=== PATIENT | female | born 1965 | race Caucasian/White ===

== ENCOUNTER 2023-12-13 17:17 | Inpatient (IN) | payer OTHER ==
[~2023-12-13] VITALS: Ht 162.6 cm; Wt 145.9 kg
[~2023-12-13 17:17] MED LIST: ELIQUIS5 M2 PO; Prinivil5 MG PO
[2023-12-13 18:28] LABS: BASOPHILS ABSOLUTE AUTO 0.05 K/mm3 (0.00-0.23); BASOPHILS PERCENT AUTO 1 % (0-2); EOSINOPHILS ABSOLUTE AUTO 0.35 K/mm3 (0.00-0.68); EOSINOPHILS PERCENT AUTO 4 % (0-6); Hematocrit 39.2 % (33.0-51.0); Hemoglobin 12.3 g/dL (11.5-16.0); IMMATURE GRAN ABSOLUTE AUTO 0.03 K/mm3 (0.00-0.10); IMMATURE GRAN PERCENT AUTO 0 % (0-1); LYMPHOCYTES ABSOLUTE AUTO 2.82 K/mm3 (0.84-5.20); LYMPHOCYTES PERCENT AUTO 30 % (21-46); MONOCYTES ABSOLUTE AUTO 0.88 K/mm3 (0.16-1.47); MONOCYTES PERCENT AUTO 9 % (4-13); Mean Corpuscular HGB 27.3 pg (26.0-34.0); Mean Corpuscular HGB Conc 31.4 g/dL (31.5-36.5); Mean Corpuscular Volume 87 fL (80-100); Mean Platelet Volume 9.3 fL (9.1-12.4); NEUTROPHILS PERCENT AUTO 56 % (41-73); Platelet Count 277 K/mm3 (150-400); RDW Coefficient Variation 14.6 % (11.7-14.2); RDW Standard Deviation 46.6 fL (35.1-46.3); White Blood Cell Count 9.43 K/mm3 (4.00-11.30)
[2023-12-13 18:57] LABS: Albumin, Blood 2.9 g/dL (3.4-5.0); Albumin/Globulin Ratio 0.8 (0.8-1.8); Bilirubin, Total 0.5 mg/dL (0.1-1.0); Bun/Creatinine Ratio 16.1 (12.0-20.0); Calcium, Blood 9.3 mg/dL (8.5-10.1); Creatinine, Blood 0.75 mg/dL (0.40-1.00); Globulin, Blood 3.8 g/dL (2.2-4.0); Potassium, Blood 3.8 mmol/L (3.5-5.5); Total Protein, Blood 6.7 g/dL (6.4-8.2)
[2023-12-13] MEDS ORDERED: Acetaminophen 325 MG TABLET PO PRN (20:35)
[2023-12-13] MEDS ORDERED: Albuterol 2.5 MG/3 ML VIAL INH PRN (20:35)
[2023-12-13 20:54] LABS: International Normalized Ratio 1.07; Prothrombin Time Results 11.4 Sec (9.7-11.5)
[2023-12-13] MEDS ORDERED: Dose Adjust by Pharmacy XX STA (20:55)
[2023-12-13 20:58] LABS: Magnesium, Blood 1.8 mg/dL (1.6-2.4); Thyroid Stimulating Hormone 2.5 uIU/mL (0.360-4.800)
[2023-12-13] MEDS ORDERED: Heparin Sodium 5000 Units/ML 1ML MDV IV ONE (21:00)
[2023-12-13] MEDS ORDERED: Heparin Sodium,Porcine/0.5 NS 500 ML IV SCH (21:00)
[2023-12-13] MEDS ORDERED: Metoprolol Tartrate 25 MG Tab PO SCH (21:00)
[2023-12-13] MEDS ORDERED: TOPROL XL25 MG PO (21:51)
[2023-12-13] MEDS ORDERED: HYDCHL25 PO (21:52)
[2023-12-13] MEDS ORDERED: POTCHL20ER PO (21:52)
[2023-12-13] MEDS ORDERED: Vitamin D1000 UNI1 PO (21:53)
[2023-12-13] MEDS ORDERED: MULTIPLE VITAM1 EACH PO (21:53)
--- NOTE | 2023-12-13 22:27 | NUR ---
PT ARRIVED ON UNIT AT ABOUT ~2140. AOX4, PLEASANT, ABLE TO MAKE NEEDS KNOWN. ADMITTED FOR AFIB W/RVR. PER PT, SCHEDULED FOR CARDIOVERSION TOMORROW AND WAS TOLD TO COME IN BY HER DOCTOR. TELE IN PLACE, PT RUNNING AFIB WITH RATE VARIABLE BETWEEN 100s-130s PRIMARILY. DENIES FEELING SYPMTOMATIC IN ANY CAPACITY. PT IS VERY PLEASANT BUT SOMEWHAT TEPID ON ADMISSION PROCESS. MOSTLY COOPERATIVE BUT REFUSES IN DEPTH SKIN ASSESSMENT. REPORTS NO WOUNDS/ABRASIONS/SKIN ABNORMALITIES. REPORTS BROADLY BEING PRETTY HEALTHY AT BASELINE. INFORMED PT THAT INSULIN IS SCHEDULED Q6 DUE TO HX OF DIABETES. PT REPORTS THAT SHE WAS JUST INFORMED THAT SHE IS DIABETIC TODAY AND REFUSES CBG CHECKS AND INSULIN ADMINISTRATION UNTIL SHE HAS A CHANCE TO SPEAK WITH DOCTOR. PT EDUCATED TIE CARRIER LIGHT USE. BED LOCKED IN LOWEST POSITION. CALL LIGHT LEFT WITHIN REACH. CONTINUING TO MONITOR.
[2023-12-13 22:36] VITALS: BP 139/97
[2023-12-14] VITALS (7 sets, daily range): BP systolic 111–151; BP diastolic 81–108
[2023-12-14] MEDS ORDERED: Insulin Human Lispro 100 Units/ML 3ML Syringe SC SCH
--- NOTE | 2023-12-14 02:26 | NUR ---
UPDATE PT REFUSED MDN CBG CHECK FOR Q6HR ORDERS. PT EDUCATED ON NEED TO CHECK BLOOD GLUCOSE.
[2023-12-14 04:13] LABS: Hematocrit 38.9 % (33.0-51.0); Hemoglobin 12.4 g/dL (11.5-16.0); Mean Corpuscular HGB 27.7 pg (26.0-34.0); Mean Corpuscular HGB Conc 31.9 g/dL (31.5-36.5); Mean Corpuscular Volume 87 fL (80-100); Mean Platelet Volume 9.1 fL (9.1-12.4); Platelet Count 252 K/mm3 (150-400); RDW Coefficient Variation 14.7 % (11.7-14.2); RDW Standard Deviation 46.7 fL (35.1-46.3); Red Blood Cell Count 4.48 M/mm3 (3.80-5.20); White Blood Cell Count 10.76 K/mm3 (4.00-11.30)
[2023-12-14 04:35] LABS: Calcium, Blood 8.8 mg/dL (8.5-10.1); Creatinine, Blood 0.65 mg/dL (0.40-1.00); Magnesium, Blood 1.9 mg/dL (1.6-2.4); Potassium, Blood 3.8 mmol/L (3.5-5.5)
[2023-12-14] MEDS ORDERED: Dose Adjust by Pharmacy XX STA ×2 (04:55→11:27)
--- NOTE | 2023-12-14 05:02 | NUR ---
SHIFT SUMMARY. SHIFT HAS BEEN UNREMARKABLE. PT HAS BEEN AOX4, PLEASANT, ABLE TO MAKE NEEDS KNOWN. PT HAS BEEN RESTING COMFORTABLY SINCE ARRIVAL. CONTINUES TO DENY PAIN. AT ONE POINT EARLY THIS MORNING, PT REPORTED FEELING SOMEWHAT SHORT OF BREATH. WAS SATURATING >95% ON ROOM AIR, LUNG SOUNDS REMAINED CLEAR. OFFERED TO LAY PT ON BACK AND SIT UP IN BED, PT REFUSED. OFFERED TO HAVE CONTINUOUS PULSE OX IN PLACE TO MONITOR OXYGENATION, PT REFUSED. AT THAT POINT SHE WAS REPORTING FEELING BETTER AND WOULD LET ME KNOW IF IT HAPPENED AGAIN. PT HAS CONTINUED TO REFUSE INSULIN ADMINISTRATION. PT HAS NOT VOIDED THUS FAR TONIGHT, SUGGESTED BLADDER SCAN TO ENSURE NO RETENTION. PT REPORTED NO HX OF RETENTION AND WAS NOT WORRIED ABOUT IT AND THUS REFUSED BLADDER SCAN. HAS CONTINUED TO RUN AFIB, RATE NOW IN 80s-100s RANGE. NPO SINCE MIDNIGHT. VITALS HAVE REMAINED STABLE. HEPARIN RUNNING THROUGHOUT SHIFT. BED LOCKED IN LOWEST POSITION. CALL LIGHT LEFT WITHIN REACH. CONTINUING TO MONITOR.
[2023-12-14] MEDS ORDERED: Warfarin Sodium 4 MG Tab PO ONE (07:55)
[2023-12-14] MEDS ORDERED: NS 1,000 ML IV ONE (13:46)
--- NOTE | 2023-12-14 14:00 | NUR ---
PT DOWN TO [facility] AND CARDIOVERSION WITH ANESTHESIA. SEE ANESTHESIA NOTES.
--- NOTE | 2023-12-14 14:31 | NUR ---
PT ALERT AND ORIENTED X4. PT UPDATED ON PROCEDURE.
--- NOTE | 2023-12-14 14:53 | NUR ---
PT WHEELED BACK TO [facility]. REPORT TO NENA MAYER TO ASSUME CARE.
--- NOTE | 2023-12-14 18:27 | NUR ---
Summary. Pt rested throughout shift. Alert and oriented, VS stable. Taken to incinerator plant laborer at approximately 1340 for cardioversion, see incinerator plant laborer report. Pt returned at 1450, Heparin gtt continued, Amiodarone GTT started, see emar. 2nd PIV placed for amio infusion. Family at bedside upon return from incinerator plant laborer. Pt to return to incinerator plant laborer tomorrow morning for angiogram, NPO after midnight. See chart for further details.
[2023-12-15] VITALS (15 sets, daily range): BP systolic 109–152; BP diastolic 81–115
[2023-12-15 03:26] LABS: BASOPHILS ABSOLUTE AUTO 0.05 K/mm3 (0.00-0.23); BASOPHILS PERCENT AUTO 1 % (0-2); EOSINOPHILS ABSOLUTE AUTO 0.34 K/mm3 (0.00-0.68); EOSINOPHILS PERCENT AUTO 4 % (0-6); Hematocrit 37.1 % (33.0-51.0); Hemoglobin 11.8 g/dL (11.5-16.0); IMMATURE GRAN ABSOLUTE AUTO 0.04 K/mm3 (0.00-0.10); IMMATURE GRAN PERCENT AUTO 0 % (0-1); LYMPHOCYTES ABSOLUTE AUTO 2.96 K/mm3 (0.84-5.20); LYMPHOCYTES PERCENT AUTO 32 % (21-46); MONOCYTES ABSOLUTE AUTO 0.67 K/mm3 (0.16-1.47); MONOCYTES PERCENT AUTO 7 % (4-13); Mean Corpuscular HGB 27.9 pg (26.0-34.0); Mean Corpuscular HGB Conc 31.8 g/dL (31.5-36.5); Mean Corpuscular Volume 88 fL (80-100); Mean Platelet Volume 9.5 fL (9.1-12.4); NEUTROPHILS ABSOLUTE AUTO 5.32 K/mm3 (1.96-9.15); NEUTROPHILS PERCENT AUTO 57 % (41-73); Platelet Count 238 K/mm3 (150-400); RDW Coefficient Variation 14.8 % (11.7-14.2); RDW Standard Deviation 47.3 fL (35.1-46.3); Red Blood Cell Count 4.23 M/mm3 (3.80-5.20); White Blood Cell Count 9.38 K/mm3 (4.00-11.30)
[2023-12-15 03:42] LABS: International Normalized Ratio 1.07; Prothrombin Time Results 11.4 Sec (9.7-11.5)
[2023-12-15 03:49] LABS: Albumin, Blood 2.8 g/dL (3.4-5.0); Albumin/Globulin Ratio 0.8 (0.8-1.8); Bilirubin, Total 0.6 mg/dL (0.1-1.0); Bun/Creatinine Ratio 23.3 (12.0-20.0); Calcium, Blood 8.3 mg/dL (8.5-10.1); Creatinine, Blood 0.6 mg/dL (0.40-1.00); Globulin, Blood 3.6 g/dL (2.2-4.0); Potassium, Blood 3.6 mmol/L (3.5-5.5); Total Protein, Blood 6.4 g/dL (6.4-8.2)
[2023-12-15] MEDS ORDERED: Clarify Drug Order XX ONE (04:05)
--- NOTE | 2023-12-15 04:41 | NUR ---
SHIFT SUMMARY. SHIFT HAS BEEN UNREMARKABLE. PT AOX4, PLEASANT, COOPERATIVE WITH CARE, CALLS APPROPRIATELY, ABLE TO MAKE NEEDS KNOWN. HAS RESTED COMFORTABLY THROUGHOUT MOST OF SHIFT. HEPARIN AND AMIODARONE RUNNING THROUGHOUT SHIFT. AMIO HAS BEEN RUNNING AT MAINTENENCE RATE SINCE ABOUT ~2230 LAST NIGHT. HEPARIN RATE BEING MANAGED BY PHARMACY. PT HAS BEEN RUNNING SINUS THROUGHOUT SHIFT, RATE IN THE 60s-80s RANGE. VITALS STABLE. PT CONTINUES TO BE LARGELY COOPERATIVE WITH CARE BUT OPTS OUT OF CERTAIN REQUESTS. PREFERS NOT TO HAVE IN DEPTH SKIN ASSESSMENT, HAS REFUSED BLADDER SCAN THUS FAR DESPITE MINIMAL URINE OUTPUT. PT DENIES HX OF RETENTION. HAS BEEN NPO SINCE MIDNIGHT PENDING ANGIO TODAY. NO PAIN REPORTED THROUGHOUT SHIFT OUTSIDE OF MILD DISCOMFORT ASSOCIATED WITH CARDIOVERSION TODAY. BED LOCKED IN LOWEST POSITION. CALL LIGHT LEFT WITHIN REACH. CONTINUING TO MONITOR.
--- NOTE | 2023-12-15 07:18 | NUR ---
late this morning, pt amiodarone infiltrated in lac. spoke with pharmacist ravin. recommended warm compresses and elevation. may consider amphydase if infiltration is unresponsive to previous management strategies. warm compresses applied, extremity elevated. continuing to monitor.
[2023-12-15] MEDS ORDERED: NS 250 ML IV ONE (07:55)
[2023-12-15] MEDS ORDERED: Verapamil HCL 2.5 MG/ML 2ML Injection ONE (07:55)
[2023-12-15] MEDS ORDERED: NS 1,000 ML IV ONE ×2 (07:55→09:14)
[2023-12-15] MEDS ORDERED: Nitroglycerin 2 MG/20 ML BTL ONE (07:55)
[2023-12-15] MEDS ORDERED: Heparin Sodium 1000 Units/ML 10ML MDV ONE (07:55)
[2023-12-15] MEDS ORDERED: Potassium Chloride 20 MEQ TabCR PO ONE (08:00)
[2023-12-15] MEDS ORDERED: Midazolam HCl 1MG / ML 2ML Vial ONE (09:13)
[2023-12-15] MEDS ORDERED: FentaNYL Citrate 50 MCG/ML 2 ML Injection ONE (09:13)
[2023-12-15] MEDS ORDERED: Spironolactone 25 MG Tab PO SCH (10:50)
[2023-12-15] MEDS ORDERED: Losartan Potassium 25 MG Tab PO SCH (10:50)
[2023-12-15] MEDS ORDERED: Metoprolol Succinate 25 MG TABCR PO SCH (10:50)
[2023-12-15] MEDS ORDERED: Furosemide 20 MG Tab PO SCH (10:50)
--- NOTE | 2023-12-15 11:00 | NUR ---
PT ARRIVED BACK TO PCU [facility] FROM [facility] POST ANGIO. PT HAS TR BAND TO R WRIST WITH ARM BOARD IN PLACE. VENOUS ACCESS TO RAC HAS CHG TEG IN PLACE. NO HEMATOMA OR BLEEDING SEEN AT R WRIST. AMIO DRIP CONTINUES AT MAINTENANCE RATE. PTS RFA IV INFILTRATED PRIOR TO ARRIVAL TO THE [facility]. A POWER GLIDE WAS PLACED TO HER ANTONIA IN THE [facility]. PT ARRIVES ALERT AND ORIENTED. PT COMPLAING THAT HER LFA WHERE THE FIRST IV INFILTRATED IS PAINFUL TO THE TOUCH. WARM COMPRESS WAS REAPPLIED TO SITE. POST OP VITALS STARTED. VSS PT DENIES ANT FURTHER NEEDS OR COMPLATINS. CALL LIGHT IN REACH.
[2023-12-15] MEDS ORDERED: Hyaluronidase 150 UNIT/ML Vial SC ONE (11:20)
[2023-12-15] MEDS ORDERED: Empagliflozin 10 MG TAB PO SCH (12:00)
--- NOTE | 2023-12-15 13:30 | NUR ---
THIS RN CONSULTED DR KRISTOPHER BOATENGING AMIODERONE DRIP. AMIODERONE GTT IS SCHEDULED TO [place] AT 1430. VERBAL ORDER FOR AMIODARONE 400MG PO BID X2 WEEKS, FOLLOWED BY 200MG PO BID X2 WEEKS THEN BY 200MG PO DAILY.
[2023-12-15] MEDS ORDERED: Propofol 10mg/ml 20 ml Vial (Procedural) IV ONE (13:46)
--- NOTE | 2023-12-15 17:15 | NUR ---
SHIFT SUMMARY NEURO: PT ALERT AND ORIENTED. NO NEURO SYMPTOMS. CARDIAC: PT HAS BEEN IN SINUS RHYTHM THROUGHOUT SHIFT. PTS AMIODARONE DRIP WAS DISCONTINUED AT 1440 PER EMAR ORDERS. PT REMAINS IN A SINUS RHYTHM IN THE 60'S-70'S SINCE.TR BAND WAS REMOVED AROUND 1430. TEG DRESSING REMAINS IN PLACE TO R WRIST WITHOUT ANY BRUISING BLEEDING OR SWELLING. HEPARIN RESTARTED AT 1440. PT HAS DENIED ANY CP DURING THIS SHIFT. RESP: LUNG SOUNDS CLEAR THROUGHOUT. PT REPORTED SOB AFTER WALKING TO THE BATHROOM, OTHERWISE HAS NOT HAD ANY OTHER EPISODES OF SOB. ON RA. GI/: WNL. DENIES ANY ABD PAIN OR URINARY SYMPTOMS. SKIN: WNL IV'S: POWERGLIDE TO ANTONIA. 20G IV TO RFA. NO OTHER SIGNIFICANT EVENTS HAVE HAPPENED. SEE PREVIOUS NOTES.
[2023-12-15] MEDS ORDERED: Warfarin Sodium 3 MG Tab PO SCH (18:00)
[2023-12-16 03:57] LABS: Hematocrit 36.3 % (33.0-51.0); Hemoglobin 11.6 g/dL (11.5-16.0); Mean Platelet Volume 9.3 fL (9.1-12.4); Platelet Count 237 K/mm3 (150-400)
[2023-12-16 04:05] VITALS: BP 134/88
[2023-12-16 04:13] LABS: Bun/Creatinine Ratio 13.2 (12.0-20.0); Calcium, Blood 8.4 mg/dL (8.5-10.1); Creatinine, Blood 0.61 mg/dL (0.40-1.00); Potassium, Blood 3.7 mmol/L (3.5-5.5)
[2023-12-16 04:21] LABS: International Normalized Ratio 1.09; Prothrombin Time Results 11.6 Sec (9.7-11.5)
[2023-12-16] MEDS ORDERED: Dose Adjust by Pharmacy XX STA ×2 (04:42→11:08)
--- NOTE | 2023-12-16 05:05 | NUR ---
SHIFT SUMMARY. SHIFT HAS BEEN UNREMARKABLE. PT AOX4, PLEASANT, COOPERATIVE WITH CARE, CALLS APPROPRIATELY FOR ASSISTANCE. HAS BEEN ABLE TO REST COMFORTABLY THROUGHOUT SHIFT. CONTINUES TO DENY PAIN. RIGHT RADIAL SITE IS RECOVERED WITH BACKBOARD IN PLACE, WNL APPEARANCE. CONTINUES TO RUN SINUS ON MONITOR. PER BAKER CHEF, PT WAS RUNNING WAP YESTERDAY ON DAY SHIFT FOR SOME TIME BUT APPEARS TO HAVE BEEN RUNNING SINUS OVERNIGHT. VITALS STABLE. PT MAINTAINS ADEQUATE SATURATION ON ROOM AIR WHILE AWAKE. HAS REQUIRED 2.5 L O2 VIA NC WHILE SLEEPING TO MAINTAIN ADEQUATE SATURATION. HEPARIN CONTINUES TO INFUSE. PT REMAINS INDEPDENDENT WITHIN ROOM FOR TRANSFER. BED LOCKED IN LOWEST POSITION. CALL LIGHT LEFT WITHIN REACH. CONTINUING TO MONITOR.
[2023-12-16] MEDS ORDERED: Insulin Human Lispro 100 Units/ML 3ML Syringe SC SCH (07:30)
[2023-12-16 07:53] VITALS: BP 139/102
[2023-12-16] MEDS ORDERED: Amiodarone HCl 200 MG Tab PO SCH (09:00)
[2023-12-16] MEDS ORDERED: Losartan Potassium 25 MG Tab PO ONE (11:00)
[2023-12-16 11:26] VITALS: BP 116/77
[2023-12-16] MEDS ORDERED: AMIODARONE HCL400 M2 PO (14:21)
[2023-12-16] MEDS ORDERED: Amiodarone HCl200 MG PO (14:23)
[2023-12-16] MEDS ORDERED: JARDIANCE10 MG PO (14:25)
[2023-12-16] MEDS ORDERED: FURO20 PO (14:25)
[2023-12-16] MEDS ORDERED: LOSA50 PO (14:25)
[2023-12-16] MEDS ORDERED: SPIR25 PO (14:25)
--- NOTE | 2023-12-16 15:54 | NUR ---
DISCHARGE SUMMARY PT A&Ox4, CALLS AND COMMUNICATES NEEDS APPROPRIATELY. BP STABLE, SINUS 80's, DENIES CP/PRESSURE. SpO2> 92% RA, DENIES SOB. IND IN ROOM. R RADIAL ARTERIAL SITE WNL, NO BRUISING, BLEEDING, HEMATOMA, ARM BOARD IN PLACE. R RADIAL VEIN SITE WITH MILD BRUISING, NO BLEEDING OR SWELLING. NO C/O PAIN. DISCHARGE INSTRUCTIONS PROVIDED. ALL PT BELONGINGS GATHERED AND SENT WITH PT WHEN TAKEN OUT VIA WHEELCHAIR BY CLINICAL STAFF MEMBER AT APPROXIMATELY 1550.
[2023-12-16] MEDS ORDERED: Warfarin Sodium 7.5 MG Tab PO ONE (18:00)
[2023-12-17] MEDS ORDERED: Losartan Potassium 50 MG Tab PO SCH (09:00)
[2023-12-31] MEDS ORDERED: Amiodarone HCl 200 MG Tab PO SCH (09:00)
[2024-01-14] MEDS ORDERED: Amiodarone HCl 200 MG Tab PO SCH (09:00)
== END 2023-12-16 15:46 | disposition home or self-care (01) | DRG 287 ==
LOC: ER 17:17 → PCU 17:18
PROVIDERS: Emergency Medicine; Family Medicine Adult Medicine; Nurse Practitioner Acute Care; Physician Assistant; ADMIT Student in an Organized Health Care Education/Training Program
PROC: 5A2204Z Restoration of Cardiac Rhythm, Single (ICD-10-PCS; principal; 2023-12-14)
PROC: 4A023N6 Measurement of Cardiac Sampling and Pressure, Right Heart, Percutaneous Approach (ICD-10-PCS; 2023-12-15)
PROC: B2111ZZ Fluoroscopy of Multiple Coronary Arteries using Low Osmolar Contrast (ICD-10-PCS; 2023-12-15)
PROC: B2141ZZ Fluoroscopy of Right Heart using Low Osmolar Contrast (ICD-10-PCS; 2023-12-15)
DX: I48.19 Other persistent atrial fibrillation (principal); I50.22 Chronic systolic (congestive) heart failure; F17.200 Nicotine dependence, unspecified, uncomplicated; E66.01 Morbid (severe) obesity due to excess calories; G47.33 Obstructive sleep apnea (adult) (pediatric); I11.0 Hypertensive heart disease with heart failure; I27.20 Pulmonary hypertension, unspecified; I42.8 Other cardiomyopathies; E11.9 Type 2 diabetes mellitus without complications; Z88.1 Allergy status to other antibiotic agents; Z79.01 Long term (current) use of anticoagulants; Z79.899 Other long term (current) drug therapy
CPT/HCPCS: 36415; 71046; 76937; 80048; 80053; 82947; 83690; 83735; 83880; 84443; 84484; 85014; 85018; 85025; 85027; 85049; 85610; 85730; 92960; 93005; 93010; 93312; 93325; 93456; 94762; 96365; 96374; 96376; 99152; 99285-25; A9270; C1751; C1769; C1887; C1894; C8929; G0378; J0282; J1644; J2250; J2704; J3010; J3470; J7030; J7050; J7060; Q9967